=== PATIENT | female | born 1965 | race Caucasian/White ===

== ENCOUNTER 2022-07-17 00:37 | Emergency (ER) | payer BC ==
[~2022-07-17] VITALS: Ht 162.6 cm; Wt 65.8 kg
[2022-07-17 01:03] VITALS: BP_SYST 136
--- NOTE | 2022-07-17 01:28 | NUR ---
Covid swab collected and sent to lab.
--- NOTE | 2022-07-17 02:23 | NUR ---
PT LEFT WITHOUT BEING SEEN BY
== END 2022-07-17 02:24 | disposition left against medical advice (07) ==
LOC: SED 00:37
DX: R50.9 Fever, unspecified (principal); R05.9 Cough, unspecified; R11.0 Nausea; Z53.21 Procedure and treatment not carried out due to patient leaving prior to being seen by health care provider; Z20.822 Contact with and (suspected) exposure to COVID-19
CPT/HCPCS: 36415